=== PATIENT | male | born 1985 | race Caucasian/White ===

== ENCOUNTER 2022-03-05 11:35 | Emergency (ER) | payer OTHER, SELFPAY ==
[2022-03-05] VITALS (10 sets, daily range): BP systolic 130–148; BP diastolic 73–90; PULSE 70–104; RESP 10–20; TEMP 36.4–36.9; O2SAT 95–100
--- NOTE | ~2022-03-05 | CT_ITS ---
EXAMINATION: CT abdomen pelvis w con DATE: 03/05/2022 13:55 INDICATION: Left lower quadrant abdominal pain. TECHNIQUE: Computed tomography (CT) of the abdomen and pelvis was performed with 75 mL Omnipaque 300 intravenous contrast. Automated exposure control and iterative reconstruction technique were employed . The dose-length product was 1136.58 mGy-cm. COMPARISON: None. FINDINGS: The visualized portions of the lung bases are clear without pneumonia or pleural effusion. The heart size is normal. No pericardial effusion. There is diffuse hepatic steatosis. The gallbladde r, spleen, pancreas, adrenal glands, and kidneys are normal. There are scattered diverticula in the c olon. There is fat stranding around a diverticulum of sigmoid colon, consistent with diverticulitis. The appendix is normal. There are no dilated loops of bowel. There are no pathologically enlarged lym ph nodes. There is no free intraperitoneal fluid. There is mild lumbar spondylosis. 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 IMPRESSION: 1. Acute sigmoid diverticulitis. No perforation or abscess. Reviewed, dictated and finalized at location A.
[2022-03-05 11:58] LABS: Basophils Percent Auto 0.3 % (0.2-1.2); Eosinophils Absolute Auto 0.1 K/mm3 (0-0.3); Eosinophils Percent Auto 1.1 % (0-4.4); Hematocrit 51.4 % (42.0-52.0); Hemoglobin 17.7 g/dL (14.0-18.0); Immature Granulocyte Absolute 0.08 K/mm3 (0.00-0.031); Immature Granulocyte Percent A 0.8 % (0-0.5); Lymphocytes Absolute Auto 1.85 K/mm3 (0.9-3.2); Lymphocytes Percent Auto 18.4 % (18.3-44.2); Mean Corpuscular HGB Conc 34.4 g/dl (32-36); Mean Corpuscular Hemoglobin 31.4 pg (26-34); Mean Corpuscular Volume 91.3 fl (80-100); Mean Platelet Volume 8.9 fl (7.4-10.4); Monocytes Absolute Auto 0.7 K/mm3 (0.1-0.6); Monocytes Percent Auto 6.6 % (2.6-8.5); Neutrophils Absolute Auto 7.3 K/mm3 (1.3-6.7); Neutrophils Percent Auto 72.8 % (45.5-73.1); Platelet Count Result 329 k/mm3 (150-375); Red Blood Count 5.63 M/mm3 (4.6-6.20); Red Cell Distribution Width 12.6 % (11.5-14.5); White Blood Count 10.1 K/mm3 (4.5-10.0)
[2022-03-05 12:08] LABS: Alanine Aminotransferase 81 U/L (6-50); Albumin Level 4.9 g/dL (3.5-5.1); Alkaline Phosphatase 92 U/L (38-126); Anion Gap 8 mmol/L (8-16); Aspartate Amino Transferase 52 U/L (17-59); Bilirubin,Total 0.7 mg/dL (0.2-1.3); Blood Urea Nitrogen 12 mg/dL (9-20); Calcium 9.6 mg/dL (8.4-10.2); Carbon Dioxide 25 mmol/L (22-30); Chloride 104 mmol/L (98-107); Estimated CRCL calculation 137 ml/min; Estimated Glomerular Filt Rate > 60; Glucose 117 mg/dL (65-110); Lipase 49 U/L (23-300); Potassium 4.5 mmol/L (3.4-5.0); Sodium 137 mmol/L (137-145)
[2022-03-05 13:07] LABS: Appearance Urine Clear (Clear); Bilirubin Urine Negative (Negative); Color Urine Yellow (Yellow); Glucose Urine UA Negative (Negative); Ketones Urine Negative (Negative); Leukocyte Esterase Ur Negative LEU/UL (Negative); Nitrate Urine Negative (Negative); Protein Urine 2+ mg/dL (Negative); Specific Grav Ur 1.025 (1.001-1.035); Urobilinogen Urine 0.2 mg/dL (<2.0)
[2022-03-05 13:16] LABS: Mucus Urine Rare /lpf; WBC Urine 0-3 /hpf
[2022-03-05 13:35] LABS: Add Urine Microscopic? YES; Blood Urine Trace-Intact (Negative)
[2022-03-05] MEDS: SODIUM CHLORIDE 0.9% IV 1,000 ML 999 ML IV CONT (14:03)
[2022-03-05] MEDS: Please add drug allergy info to patient profile. 1 EACH XX (14:03)
[2022-03-05] MEDS: KETOROLAC 15 MG/ML VIAL (*BKC) IV PUSH (14:04)
--- NOTE | 2022-03-05 14:15 | ED.ABDPAIN ---
HPI - Abdominal Pain General Chief Complaint: Abdominal Pain Stated Complaint: diverticulitis flare Time Seen by Provider: 03/05/22 12:44 Source: patient History of Present Illness HPI narrative: Patient presents with left lower quadrant abdominal pain. Reports a history of diverticulitis and this feels like his prior episodes. Symptoms started yesterday and got progressively worse. His pain is achy, constant, radiates across his lower abdomen. Also reports increase stool frequency and is only having a small amount of stool when he tries. Denies any nausea vomiting. Denies any fevers or back pain denies any urinary symptoms. Related Data Allergies Allergy/AdvReac Type Severity Reaction Status Date / Time Penicillins Allergy Rash Verified 03/05/22 14:02 Review of Systems Review of Systems: CONSTITUTIONAL: Denies fever, chills, or sweats. EYES: Denies visual changes, redness, or discharge. ENT: Denies rhinorrhea, congestion, sore throat, or otalgia. CARDIOVASCULAR: Denies chest pain, palpitations, or edema. RESPIRATORY: Denies cough or dyspnea. GASTROINTESTINAL: Denies nausea, vomiting. GENITOURINARY: Denies dysuria or hematuria. SKIN: Denies rash or itching. MUSCULOSKELETAL: Denies back pain, joint pain, or myalgia. NEUROLOGIC: Denies headache, numbness, dizziness, or weakness. PSYCHIATRIC: Denies anxiety or depression. All systems reviewed & are unremarkable except as noted in HPI and below Exam Narrative: GENERAL: Well-appearing, well-nourished, and in no acute distress. HEAD: Normocephalic, atraumatic. EYES: PERRLA and EOMI. ENT: Nares clear, no rhinorrhea or epistaxis. Mucous membranes moist. NECK: Supple. No masses. No JVD ABDOMEN: Moderate tenderness in the left lower quadrant no rebound or guarding soft, nondistended, normal active bowel sounds. EXTREMITIES: Normal range of motion. No edema. SKIN: Warm, dry, no rash. NEURO: No focal deficits. Alert and oriented x3. PSYCH: Normal mood and affect. Course Reevaluation(s) Reevaluation #1: Patient resting comfortable results and plan reviewed with patient. Patient is comfortable outpatient plan. Date: 03/05/22 Time: 14:17 Vital Signs Vital signs: Vital Signs Temperature 36.4 C 03/05/22 11:46 Pulse Rate 92 03/05/22 11:46 Respiratory Rate 18 03/05/22 11:46 Blood Pressure 144/90 H 03/05/22 11:46 Pulse Oximetry 97 03/05/22 11:46 Oxygen Delivery Room Air 03/05/22 11:46 Temperature 36.9 C 03/05/22 14:30 Pulse Rate 70 03/05/22 14:30 Respiratory Rate 16 03/05/22 14:30 Blood Pressure 132/74 03/05/22 14:30 Pulse Oximetry 100 03/05/22 14:30 Oxygen Delivery Room Air 03/05/22 11:46 MDM - Abdominal Pain MDM Narrative Medical decision making narrative: H&P as above, vss, pt looks clinically well, exam with left lower quadrant abdominal pain, labs clinically unremarkable, img with sigmoid diverticulitis. Additional labs/img considered, symptomatic relief available as needed, on reevaluation pt continues to looks clinically well. Suspect diverticulitis, dns abscess, perforation, severe sepsis, severe dehydration. plan to tx/monitor as op w/ pcm f/u findings/plan discussed with pt, pt agree/comfortable with plan, return precautions given Lab Data Result diagrams: 03/05/22 11:52 03/05/22 11:52 Labs: Lab Results 03/05/22 03/05/22 03/05/22 Range/Units 11:52 11:52 12:47 WBC 10.1 H (4.5-10.0) K/mm3 RBC 5.63 (4.6-6.20) M/mm3 Hgb 17.7 (14.0-18.0) g/dL Hct 51.4 (42.0-52.0) % MCV 91.3 (80-100) fl MCH 31.4 (26-34) pg MCHC 34.4 (32-36) g/dl RDW 12.6 (11.5-14.5) % Plt Count 329 (150-375) k/mm3 MPV 8.9 (7.4-10.4) fl Immature Gran % (Auto) 0.8 H (0-0.5) % Neut % (Auto) 72.8 (45.5-73.1) % Lymph % (Auto) 18.4 (18.3-44.2) % [place] % (Auto) 6.6 (2.6-8.5) % Eos % (Auto) 1.1 (0-4.4) % Baso % (Auto) 0.3 (0.2-1.2) % Lymph # (Auto
[2022-03-05] MEDS: metroNIDAZOLE 250 MG TABLET 500 MG PO (14:49)
[2022-03-05] MEDS: levoFLOXacin 750 MG TABLET PO (15:16)
== END 2022-03-05 15:20 | disposition home or self-care (01) ==
PROVIDERS: Family Medicine; Emergency Provider Emergency Medicine
DX: K57.92 Diverticulitis of intestine, part unspecified, without perforation or abscess without bleeding (principal)
CPT/HCPCS: 36415; 74177; 80053; 81001; 83690; 85025; 96361; 96374; 99284; A9270; J1885; J7030; Q9967